=== PATIENT | female | born 1955 | race Caucasian/White ===

== ENCOUNTER → 2017-10-13 | Outpatient (CLI) | payer BC | LOC: BMCIMAGING 14:57 | PROVIDERS: ATTEND Physician Assistant | DX: Z12.31 Encounter for screening mammogram for malignant neoplasm of breast (principal); Z80.3 Family history of malignant neoplasm of breast | CPT/HCPCS: G0202 ==

== ENCOUNTER → 2018-11-03 | Outpatient (CLI) | payer BC | LOC: BMCIMAGING 14:35 | PROVIDERS: ATTEND Physician Assistant | DX: Z12.31 Encounter for screening mammogram for malignant neoplasm of breast (principal); Z80.3 Family history of malignant neoplasm of breast ==

== ENCOUNTER → 2018-11-15 | Outpatient (CLI) | payer BC | LOC: BMCIMAGING 09:46 | PROVIDERS: ATTEND Physician Assistant | DX: R92.8 Other abnormal and inconclusive findings on diagnostic imaging of breast (principal) ==

== ENCOUNTER → 2019-02-06 | Outpatient (CLI) | payer BC | LOC: FIMAGING 16:07 | PROVIDERS: ATTEND Physician Assistant | DX: R05 Cough (principal) ==